=== PATIENT | male | born 1975 | race African-American/Black ===

== ENCOUNTER 2021-11-01 23:31 | Emergency (ER) | payer OTHER ==
[~2021-11-01] VITALS: Ht 172.7 cm; Wt 93.0 kg
--- NOTE | 2021-11-02 | NUR ---
KATELIN FROM [facility]ARE HOME C/O HIGH BP. BP AT TRIAGE 182/106 +HEADACHE. PATIENT ALERT AND ORIENTED X3. AMBULATORY WITH NON LABORED BREATHING. IN BED 15 AWAITING MD OLIVER.
[2021-11-02] MEDS ORDERED: ACETAMINOPHEN 325 MG TABLET PO ONE (00:30)
[2021-11-02] MEDS ORDERED: ACETAMINOPHEN 325 MG TABLET ONE (00:32)
--- NOTE | 2021-11-02 00:34 | NUR ---
EMT @ BEDSIDE FOR EKG.
[2021-11-02 00:57] LABS: BASOPHILS % (AUTO) 0.3 % (0.0-2.0); EOSINOPHILS % (AUTO) 0.2 % (0.0-6.0); HEMATOCRIT 43 % (39-51); HEMOGLOBIN 14.1 g/dL (13.5-17.5); LYMPHOCYTES # (AUTO) 0.6 K/uL (0.8-4.8); LYMPHOCYTES % (AUTO) 9.2 % (20.0-44.0); MEAN CORPUSCULAR HGB CONC 33 g/dl (31.0-36.0); MEAN CORPUSCULAR VOLUME 81 fL (80-96); MONOCYTES # (AUTO) 1.4 K/uL (0.1-1.30); MONOCYTES % (AUTO) 21.8 % (2.0-12.0); NEUTROPHILS # (AUTO) 4.4 K/uL (1.8-8.9); NEUTROPHILS % (AUTO) 68.5 % (43.0-81.0); PLATELET COUNT (AUTO) 194 K/uL (150-450); RED BLOOD CELL COUNT(AUTO) 5.31 MIL/uL (4.5-6.0); WHITE BLOOD COUNT (AUTO) 6.4 K/uL (4.3-11.0)
--- NOTE | 2021-11-02 01:04 | NUR ---
PT TAKEN FOR CT SCAN
[2021-11-02 01:08] LABS: CALCIUM, SERUM 8.4 mg/dL (8.5-10.1); CARBON DIOXIDE 27 mmol/L (21-32); CHLORIDE 103 mmol/L (98-107); GLUCOSE 107 mg/dL (74-106); POTASSIUM 3.7 mmol/L (3.5-5.1); SODIUM SERUM 139 mmol/L (136-145); UREA NITROGEN, BLOOD 12 mg/dL (7-18)
[2021-11-02] MEDS ORDERED: diphenhydrAMINE HCL 25 MG CAPSULE PO ONE (03:00)
[2021-11-02] MEDS ORDERED: KETOROLAC TROMETHAMINE INJ 60 MG/2 ML VIAL IM ONE (03:00)
[2021-11-02] MEDS ORDERED: PROCHLORPERAZINE MALEATE 10 MG TABLET PO ONE (03:00)
[2021-11-02] MEDS ORDERED: KETOROLAC TROMETHAMINE 15 MG/ML VIAL ONE (03:02)
[2021-11-02] MEDS ORDERED: diphenhydrAMINE HCL 50 MG CAPSULE ONE (03:02)
[2021-11-02] MEDS ORDERED: PROCHLORPERAZINE MALEATE 10 MG TABLET ONE (03:03)
[2021-11-02 05:02] VITALS: BP 140/80
--- NOTE | 2021-11-02 05:02 | NUR ---
Patient discharged to home in stable condition. Written and verbal after care instructions given. Patient verbalizes understanding of instruction.
== END 2021-11-02 05:02 ==
LOC: ER 23:34
DX: R07.89 Other chest pain (principal); R51.9 Headache, unspecified; I10 Essential (primary) hypertension
CPT/HCPCS: 36415; 70450; 71045; 80048; 84484 ×2; 85007; 85025; 93005 ×2; 96372; 99285; J1885; Q0163; Q0164